=== PATIENT | female | born 1940 | race Caucasian/White ===

== ENCOUNTER 2016-09-29 09:52 | Emergency (ER) | payer OTHER, MEDICAID ==
[~2016-09-29] VITALS: Ht 152.4 cm; Wt 66.5 kg
[~2016-09-29 09:52] MED LIST: ASPI325T32 GTB; CARV3.1260 PO; HYDR12.53 PO; LISI30TA47 PO
[2016-09-29 09:56] VITALS: Ht 152.4 cm; Wt 66.5 kg
[2016-09-29] MEDS ORDERED: IBUPROFEN 600 MG TAB PO ONE (10:30)
--- NOTE | 2016-09-29 10:39 | ERD ---
ER Documentation Chief Complaint Date/Time DATE: 09/29/16 TIME: 10:31 Chief Complaint lt arm pain since tuesday HPI Patient is a 76-year-old female with a past medical history of hypertension and HLD who presents to the emergency department with left arm pain 2 days. 2 days ago, [place] the park. Patient states that she was sitting on a curb and unable to get up. Patient states that a friend helped her get up and pulled her by the left arm.. Patient did take ibuprofen with minimal alleviation of symptoms. Patient denies any chest pain, shortness of breath, nausea, vomiting, diaphoresis or loss of consciousness. Patient denies any previous injuries to the affected extremity. Patient is right-hand dominant. Patient is able to move her wrist and all digits without any difficulty. ROS All systems reviewed and are negative except as per history of present illness. Medications Home Meds Active Scripts Acetaminophen* (Tylophen*) 500 Mg Capsule, 1 CAP PO Q6H Y for PAIN AND OR ELEVATED TEMP, #20 CAP Prov:ELENO CANO PA-C 09/29/16 Reported Medications Hydrochlorothiazide (Hydrochlorothiazide) 12.5 Mg Capsule, 12.5 MG PO DAILY 09/05/12 Aspirin* (Aspirin* EC) 325 Mg Tab, 325 MG GTB DAILY 09/05/12 Carvedilol* (Carvedilol*) 3.125 Mg Tablet, 3.125 MG PO BID 09/05/12 Lisinopril* (Lisinopril*) 30 Mg Tablet, 40 MG PO DAILY 09/05/12 Allergies Allergies: Coded Allergies: No Known Drug Allergies (Verified Allergy, Unknown, 09/29/16) PMhx/Soc History of Surgery: Yes (D &C) Anesthesia Reaction: No Hx Neurological Disorder: No Hx Respiratory Disorders: No Hx Cardiac Disorders: Yes (PALPITATIONS) Hx Psychiatric Problems: No Hx Miscellaneous Medical Probl: Yes (HGH CHOLESTEROL, HTN) Hx Alcohol Use: No Hx Substance Use: No Hx Tobacco Use: No Smoking Status: Never smoker FmHx Family History: No diabetes Physical Exam Vitals Vital Signs Date Time Temp Pulse Resp B/P Pulse Ox O2 Delivery O2 Flow Rate FiO2 09/29/16 09:56 98.1 77 18 143/85 98 Physical Exam GENERAL: Well-developed, well-nourished female. Appears in no acute distress. HEAD: Normocephalic, atraumatic. EYES: Pupils are equally reactive bilaterally. EOMs grossly intact. No conjunctival erythema. ENT: Moist mucous membranes. No uvula deviation. No kissing tonsils. NECK: Supple. No meningismus. Normal range of motion of the neck. LUNG: Clear to auscultation bilaterally. No rhonchi, wheezing, rales or coarse breath sounds. HEART: Regular rate and rhythm. No murmurs, rubs or gallops. EXTREMITIES: Equal pulses bilaterally. No peripheral clubbing, cyanosis or edema. No unilateral leg swelling. NEUROLOGIC: Alert and oriented. Moving all four extremities without any difficulty. Normal speech. Steady gait. SKIN: Normal color. Warm and dry. No rashes or lesions. LEFT ARM: No obvious deformity, erythema, ecchymosis or swelling. Decreased range of motion of the shoulder secondary to pain. Normal passive range of motion of the elbow. Tender to palpation of the left anterior shoulder, mid humerus. Nontender palpation of the elbow, forearm, wrist and hand. Patient has normal range of motion of all fingers. Sensation intact to light touch. Neurovascularly intact. (Able to give thumbs up, make an ok sign, cross digits 2 and 3, thumb to pinky opposition. 2+ RP.) No snuffbox tenderness. Results 24 hrs Current Medications Medications (Trade) Dose Ordered Sig/Luis Carlos Route PRN Reason Start Time Stop Time Status Last Admin Dose Admin Ibuprofen (Motrin) 600 mg ONCE ONCE PO 09/29/16 10:30 09/29/16 10:31 DC 09/29/16 11:11 Procedures/MDM ED COURSE: The patient was stable throughout ED course. I kept the patient and/or family informed of laboratory and diagnostic imaging results throughout the ED course. DIAGNOSTIC IMAGING: Read by radiologist. DIAGNOSTIC IMAGING REPORT Patient: APRIL MARTIN : 1940 Age: 76 Sex: F MR #: [id number] DOS: 09/29/16 1027 Ordering MD: ELENO CANO PA-C Location: [facility] Room/Bed: PROCEDURE: XR Left humerus CLINICAL INDICATION: Pain, injury TECHNIQUE: AP and lateral radiographs were submitted. COMPARISON: None FINDINGS: Osseous structures: The osseous elements appear rarefied but intact with no fracture or osseous destruction evident. Joint spaces: Mild degenerative changes seen about the left AC joint while the remaining visualized joint spaces are well maintained. Soft tissues: appear unremarkable. IMPRESSION: 1. Osteoporosis with no fracture or osseous destruction evident. 2. Mild degenerative change seen about the left AC joint. Physician Luana Date Time Electronically viewed and signed by Physician Luana on 09/29/2016 11:00 RH/ CC: ELENO CANO PA-C DIAGNOSTIC IMAGING REPORT Patient: APRIL MARTIN : 1940 Age: 76 Sex: F MR #: [id number] DOS: 09/29/16 1027 Ordering MD: ELENO CANO PA-C Location: [facility] Room/Bed: PROCEDURE: XR Left Shoulder CLINICAL INDICATION: Pain TECHNIQUE: AP internal and external rotation views and a Y-view were submitted. COMPARISON: None FINDINGS: Osseous structures: The osseous elements appear rarefied but intact with no fracture identified. Joint spaces: The glenohumeral joint appears unremarkable. Mild degenerative changes seen about the left AC joint.. Soft tissues: appear unremarkable. IMPRESSION: 1. Osteoporosis with no fracture or osseous destruction identified. 2. Mild degenerative change seen about the left AC joint. Physician Luana Date Time Electronically viewed and signed by Physician Luana on 09/29/2016 10:58 RH/ CC: ELENO CANO PA-C PROCEDURES: SPLINT APPLICATION: The patient was verbally consented at bedside prior to splint application. Patient was explained the risks, benefits and alternatives to this procedure. The patient was neurovascularly intact prior to and status post application of the splint. The patient tolerated the procedure well with no complications. Splint type: shoulder sling Extremity: left upper arm Indication: Shoulder sprain vs AC joint separation MEDICATIONS GIVEN: Ibuprofen Patient tolerated medication well with no adverse reactions. Patient reported improvement in pain. MEDICAL DECISION MAKING: This is a 76-year-old female who presents with left arm pain after being pulled up by a friend by the left arm 2 days ago. Patient denied any chest pain, shortness of breath, diaphoresis or loss of consciousness. Vital signs were reviewed. Patient was afebrile. X-ray imaging revealed 1. Osteoporosis with no fracture or osseous destruction identified. 2. Mild degenerative change seen about the left AC joint. Patient was placed in a sling for comfort measures. Given these findings, the patient's presentation is most consistent with osteoporosis vs degenerative changes of the AC joint.. I have a much lower clinical concern for shoulder dislocation, humerus fracture, clavicle fracture, septic joint, lateral epicondylitis, medial epicondylitis, olecranon bursitis, osteomyelitis, rheumatoid arthritis, ACS, no focal neurological injury, or compartment syndrome. PRESCRIPTIONS: Tylenol DISCHARGE: At this time, patient is stable for discharge and outpatient management. RICE therapy and ROM exercises were advised to avoid stiffness. I have instructed the patient to follow-up with his/her primary care physician in 1-2 days. I have discussed with the patient the possibility of needing to see an marine habitat resource specialist for further workup and imaging if the pain persists. I have instructed the patient to promptly return to the ER for any new or worsening symptoms including increased pain, swelling, redness, warmth or fever. The patient and/or family expressed understanding of and agreement with this plan. All questions were answered. Home care instructions were provided. Departure Diagnosis: Primary Impression: Pain of left arm Additional Impression: AC joint pain Laterality: left Qualified Code: M25.512 - Arthralgia of left acromioclavicular joint Condition: Stable Patient Instructions: Shoulder Pain (Uncertain Cause) Referrals: KELBY KING (PCP) Additional Instructions: Call your primary care doctor TOMORROW for an appointment during the next 1-2 days.See the doctor sooner or return here if your condition worsens before your appointment time. ELENO CANO PA-C September 29, 2016 10:39
--- NOTE | 2016-09-29 10:59 | RADRPT ---
PROCEDURE: XR Left Shoulder CLINICAL INDICATION: Pain TECHNIQUE: AP internal and external rotation views and a Y-view were submitted. COMPARISON: None FINDINGS: Osseous structures: The osseous elements appear rarefied but intact with no fracture identified. Joint spaces: The glenohumeral joint appears unremarkable. Mild degenerative changes seen about the left AC joint.. Soft tissues: appear unremarkable. IMPRESSION: 1. Osteoporosis with no fracture or osseous destruction identified. 2. Mild degenerative change seen about the left AC joint. Physician Luana Date Time Electronically viewed and signed by Sen Wayne Physician on 09/29/2016 10:58 /
--- NOTE | 2016-09-29 11:00 | RADRPT ---
PROCEDURE: XR Left humerus CLINICAL INDICATION: Pain, injury TECHNIQUE: AP and lateral radiographs were submitted. COMPARISON: None FINDINGS: Osseous structures: The osseous elements appear rarefied but intact with no fracture or osseous dest ruction evident. Joint spaces: Mild degenerative changes seen about the left AC joint while the remaining visualized joint spaces are well maintained. Soft tissues: appear unremarkable. IMPRESSION: 1. Osteoporosis with no fracture or osseous destruction evident. 2. Mild degenerative change seen about the left AC joint. Physician Luana Date Time Electronically viewed and signed by Sen Wayne Physician on 09/29/2016 11:00 /
[2016-09-29] MEDS ORDERED: ACET500C5 PO (11:38)
== END 2016-09-29 11:55 | disposition home or self-care (01) ==
LOC: FTE 09:52
DX: M79.602 Pain in left arm (principal); M25.512 Pain in left shoulder; I10 Essential (primary) hypertension; Z79.82 Long term (current) use of aspirin
CPT/HCPCS: 73030; 73060